=== PATIENT | male | born 1990 ===

== ENCOUNTER 2018-09-02 06:34 | Day surgery (SDC) | payer BC ==
[2018-09-02 06:58] VITALS: BMI 27.4
[2018-09-02 07:11] VITALS: O2SAT 100
--- NOTE | 2018-09-02 08:45 | CP.SDSHP ---
Same Day Surgery H & P - History Proposed Procedure: EGD Pre-Op Diagnosis: heartburn - Allergies Allergies: Allergies No Known Allergies Allergy (Verified 09/02/18 06:55) - Physical Exam General Appearance: NAD Vital Signs: Vital Signs 09/02/18 09/02/18 06:59 07:24 Temperature 97 F L Pulse Rate 78 78 Respiratory 19 Rate Blood Pressure 128/69 O2 Sat by Pulse 100 Oximetry Mental Status: Alert & Oriented x3 Neuro: WNL Heart: WNL Lungs: WNL GI: WNL - {Optional Preform as Required} Abdomen: WNL - Impression Pt. Evaluated Today:Candidate for Anesthesia & Procedure: Yes (cardiac studies reviewed, ok to proceed with low risk endoscopic procedure) - Date & Time Date: 09/02/18 Time: 08:45 Short Stay Discharge - Short Stay Discharge Admitting Diagnosis/Reason for Visit: GASTRO-ESOPHAGEAL REFLUX DISEASE WITHOUT ESOPHAGIT Disposition: HOME/ ROUTINE
[2018-09-02] MEDS ORDERED: Lidocaine 4% (Laryng-O-Jet) Kit MM ONE (08:46)
[2018-09-02] MEDS ORDERED: Lidocaine 2% MPF (5 ml) Inj ONE (08:49)
[2018-09-02] MEDS ORDERED: Lactated Ringer's 500 ML IV ONE (08:51)
[2018-09-02 10:56] VITALS: BP 119/61; PULSE 72; RESP 20; TEMP 98.8
== END 2018-09-02 10:55 | disposition home or self-care (01) ==
LOC: C.ENDO 06:34
PROVIDERS: ATTEND Internal Medicine Gastroenterology
DX: K21.0 Gastro-esophageal reflux disease with esophagitis (principal); K29.70 Gastritis, unspecified, without bleeding